=== PATIENT | male | born 1950 | race Caucasian/White ===

== ENCOUNTER → 2017-03-06 | Outpatient (CLI) | payer MEDICARE ==
[~2017-03-06] MED LIST: ALBUPOW38; ALPR0.5T99; DOXY100T PO; ENAL5TAB98 PO; PRIL10CA; SULF-154 PO
[2017-03-06 10:02] LABS: BLOOD GAS BASE EXCESS -1.9 mmol/L (-2-2); BLOOD GAS CARBOXYHEMOGLOBIN 6.3 % (0-4); BLOOD GAS HCO3 22 mmol/L (22-26); BLOOD GAS METHEMOGLOBIN 1.2 % (0-2); BLOOD GAS O2 HGB SATURATION 89 % (90-100); BLOOD GAS OXYGEN CONTENT 20.8 Vol % (12.0-20.0); BLOOD GAS PCO2 35 mmHg (38-42); BLOOD GAS PO2 87 mmHg (61-120); BLOOD GAS TOTAL HGB 16.6 G/DL (12.0-16.0); TEMP CORR TO 98.6
[2017-03-06 10:03] LABS: CRITICAL VALUE YES; DRAW SITE RT RADIAL; FIO2 21 %; NUMBER OF ARTERIAL PUNCTURES 1; STAT NO; ULNAR PULSE PRESENT
--- NOTE | 2017-03-11 10:27 | RSPPFT ---
DATE OF PROCEDURE: 03/06/17 COMMENTS: Spirometry with FVC of 2.0 predicted 3.7, FEV1 of 1.9 predicted 2.9, FEV1/FVC ratio 94% predicted 80%. Post-bronchodilator FVC increases to 3.0. Lung volumes are decreased with TLC at 4.7 predicted 6.5. DLCO is 70% of predicted. IMPRESSION: On the basis of the above, patient has a restrictive lung defect with some responsiveness to acutely inhaled bronchodilator. Flow volume loop is less than optimum.
== END ==
LOC: HRSP 08:47
PROVIDERS: ATTEND Internal Medicine Pulmonary Disease
DX: J44.9 Chronic obstructive pulmonary disease, unspecified (principal)
CPT/HCPCS: 36600; 82805; 94060; 94620; 94726; 94729